=== PATIENT | female | born 1960 | race Caucasian/White ===

== ENCOUNTER 2021-02-26 12:08 | Outpatient (CLI) | payer BC, SELFPAY ==
[2021-02-26] MEDS: 0.9% Saline Lock 10 ML Syringe IV (12:25)
[2021-02-26 12:28] VITALS: BP 121/92; PULSE 83; RESP 16; TEMP 37.1; O2SAT 95; BMI 38.0
[2021-02-26 13:00] VITALS: BP 119/83; PULSE 68; RESP 16; TEMP 37; O2SAT 95
[2021-02-26 14:12] VITALS: BP 126/81; PULSE 68; RESP 68; TEMP 36.9; O2SAT 100
== END 2021-02-26 14:17 | disposition home or self-care (01) ==
LOC: MS3OUT 12:08 → MS3 12:09
PROVIDERS: Referring Provider Nurse Practitioner Adult Health; Visit Provider Nurse Practitioner Adult Health
DX: Z23 Encounter for immunization (principal); U07.1 COVID-19
CPT/HCPCS: J7050; M0245; Q0245; A4216

== ENCOUNTER → 2022-01-20 | Outpatient (CLI) | payer BC, OTHER, SELFPAY ==
--- NOTE | 2022-01-20 09:12 | NM_ITS ---
CLINICAL: 61-year-old female with history of painful right knee arthroplasty most recently operated in 2017. LIMITED 99m Tc MDP THREE PHASE BONE SCINTIGRAPHY COMPARISON: None available FINDINGS: Following the intravenous administration of 25.0 mCi of 99m Tc MDP, three-phase bone acquisitions of the knee articulations reveal: 1. The flow and immediate static blood pool acquisitions knee articulations demonstrate subtle arterial and venous phase hyperemia manifest in the region of the tibial component of the right knee arthroplasty. 2. Delayed images depict persistent increased tracer uptake noted in the distal tibial component of the right knee arthroplasty corresponding in part to the arterial and venous phase hyperemia previously described. 3. Facilitated uptake is noted in the patellofemoral compartment of the right knee and midline anterior tibial compartment of the left knee. 4. The remaining limited skeletal structures are scintigraphically unremarkable. NM/Bone Scan Three Phase IMPRESSION: 1. The increase in tracer uptake identified in the tibial component of the right knee arthroplasty is consistent with a high likelihood of loosening in the setting of operative intervention > 2 years prior to the current presentation. If infection is a diagnostic consideration, correlation with labeled leukocyte imaging is recommended. 2. Enhanced uptake noted in the tibial compartment of the left knee and patellofemoral compartment of the right knee (in the absence of patellar hardware placement) is most consistent with the presence of degenerative arthrosis. Electronically Signed: Rob Landeros, at 21:47 EDT ,
== END | disposition home or self-care (01) ==
PROVIDERS: PCP Internal Medicine
DX: Z96.651 Presence of right artificial knee joint (principal)
CPT/HCPCS: 78315; A9503